=== PATIENT | male | born 1965 | race Caucasian/White ===

== ENCOUNTER → 2021-06-28 13:09 | Outpatient (CLI) | payer BC, SELFPAY ==
--- NOTE | ~2021-06-28 | XR_ITS ---
EXAMINATION: XR chest 2V EXAM DATE: 06/28/2021 13:17 INDICATION: R05 - Cough . TECHNIQUE: Frontal and lateral projections of the chest obtained and reviewed. Comparison is made to prior examination from 09/19/2014. FINDINGS: The lungs are clear. There are no pleural effusions. The cardiomediastinal silhouette is within normal limits. There is no pneumothorax suspected. The bones and soft tissues are unremarkab le. IMPRESSION: Unremarkable chest x-ray exam. Reviewed, dictated and finalized at location A.
== END ==
PROVIDERS: PCP Physician Assistant Medical; Visit Provider Physician Assistant Medical
DX: R05 Cough (principal)
CPT/HCPCS: 71046

== ENCOUNTER 2023-04-03 03:06 | Day surgery (SDC) | payer BC, SELFPAY ==
[2023-03-25 15:52] VITALS: BMI 25.1
--- NOTE | 2023-04-03 11:16 | P.HP_ITS ---
History of Present Illness History of Present Illness Consent: Risks, benefits, and alternatives have been discussed and questions answered. Patient agrees to proceed with procedure. Chief complaint: hemorrhage of anus/rectum,Other specified diseases Narrative: Og Damon is a 58 year old male Referred for colonoscopy. Patient reports he has done well except the last couple months had tender bump that occur. At the anus. This caused occasional bleeding. Initially somewhat uncomfortable. The pain has subsided he has no additional bleeding. Patient does not normally have hemorrhoids. He apparently talked to his primary care service and was sent for a colonoscopy. He was not seen in our office. Patient reports his bowel habits are normal. Family history noncontributory. Colonoscopy in 2018 was unremarkable. Review of Systems Review of Systems: Review of systems noncontributory. [facility] Family History Family History Grandparent Cerebrovascular accident Family history of lung cancer Social History Social History Smoking status: Never smoker Second hand tobacco smoke exposure: No Alcohol intake: current Drinks per week: 2 Substance use type: does not use Living arrangements: with family Spiritual care concerns: No Meds Home Medications and Allergies Home Medications Medication Instructions Recorded Confirmed Type loratadine-pseudoephedrine ER 10 1 tablet PO DAILY 03/25/23 04/03/23 History mg-240 mg tablet,extended [id number] (Claritin-D 24 Hour) fluticasone propionate 50 1 spray intranasal BID #16 grams 03/26/23 04/03/23 Rx mcg/actuation nasal spray,suspension (Flonase Allergy Relief) Allergies Allergy/AdvReac Type Severity Reaction Status Date / Time No Known Allergies Allergy Verified 04/03/23 11:28 Exam Narrative: Physical exam reveals patient to be alert. Vital signs stable. HEENT exam is unremarkable. Patient is anicteric. Lungs are clear to auscultation and percussion. Heart is without murmur or extra sounds. Abdomen bowel sounds present soft nontender with no organomegaly. Digital rectal exam reveals small hemorrhoids. Assessment and Plan Assessment and plan (1) Rectal bleeding: Code(s): K62.5 - Hemorrhage of anus and rectum Status: Acute Assessment and Plan: Rectal bleeding appears to be from a small hemorrhoid. Patient states this is where the bleeding emanates. Plan is for patient to add fiber to his diet. For any discomfort Anusol or preparation H may be beneficial. Colonoscopy arranged by primary care service will be performed today. Further recommendations may be given after endoscopy.
[2023-04-03 11:32] VITALS: BP 106/76; PULSE 69; RESP 16; TEMP 36; O2SAT 100
[2023-04-03] MEDS: LACTATED RINGERS 1,000 ML 150 ML IV CONT (11:40)
--- NOTE | 2023-04-03 11:53 | P.PNAN_ITS ---
Anes - Initial Pre Proc Eval Procedure: Operation Date: 04/03/23 12:30 Proposed Procedures p Colonoscopy - Gary Nelson MD Date/Time: 04/03/23 11:53 Surgeon: Gary Nelson MD Pre Op Diagnosis: hemorrhage of anus/rectum,Other specified diseases Patient Data Age: 58 Gender: M Height: 1.78 m Weight: 77.5 kg Last Vital Signs Temp 96.8 F L 04/03/23 11:32 Pulse 69 04/03/23 11:32 Resp 16 04/03/23 11:32 BP 106/76 04/03/23 11:32 Pulse Ox 100 04/03/23 11:32 O2 Del Method Room Air 04/03/23 11:32 Allergies Allergy/AdvReac Type Severity Reaction Status Date / Time No Known Allergies Allergy Verified 04/03/23 11:28 Home Medications Medication Instructions Recorded Confirmed Type loratadine-pseudoephedrine ER 10 1 tablet PO DAILY 03/25/23 04/03/23 History mg-240 mg tablet,extended [id number] (Claritin-D 24 Hour) fluticasone propionate 50 1 spray intranasal BID #16 grams 03/26/23 04/03/23 Rx mcg/actuation nasal spray,suspension (Flonase Allergy Relief) Patient hx anesthesia problems: none Family hx anesthesia problems: none Results Review: All pre-operative results and documents have been reviewed as part of the pre- operative evaluation. [facility] Family History Family History Grandparent Cerebrovascular accident Family history of lung cancer Social History Social History Smoking status: Never smoker Second hand tobacco smoke exposure: No Alcohol intake: current Drinks per week: 2 Substance use type: does not use Living arrangements: with family Spiritual care concerns: No Anes - Eval Final PreProcedure Day of Procedure 04/03/23 11:53 Patient weight: normal Heart: regular rate and rhythm Lungs: clear to auscultation Neurological: alert and oriented Last oral intake: >/= 8 hours ASA classification: II Emergent: no Anesthetic plan: proceed Anesthesia type and monitoring: general GIVS and standard monitoring Results Review: All pre-operative results and documents have been reviewed as part of the pre- operative evaluation. Informed Consent: The patient's anesthetic plan and its attendant risks and benefits were discussed with the patient/family/POA. Questions were solicited and answers provided to the satisfaction of the patient/family/POA.
[2023-04-03 12:14] VITALS: BP 98/69; PULSE 80; RESP 18; O2SAT 98
[2023-04-03 12:24] VITALS: BP 100/71; PULSE 68; RESP 18; O2SAT 99
[2023-04-03 12:34] VITALS: BP 109/77; PULSE 66; RESP 18; O2SAT 99
== END 2023-04-03 12:53 | disposition home or self-care (01) ==
PROVIDERS: PCP Family Medicine; Visit Provider Internal Medicine Gastroenterology
PROC: 0DJD8ZZ Inspection of Lower Intestinal Tract, Via Natural or Artificial Opening Endoscopic (ICD-10-PCS; CPT 45378; principal; 2023-04-03 12:30)
DX: K64.8 Other hemorrhoids (principal)
CPT/HCPCS: 45378; J2704; J7120

== ENCOUNTER 2023-10-07 15:44 | Outpatient (CLI) | payer BC, SELFPAY ==
--- NOTE | ~2023-10-07 | XR_ITS ---
EXAMINATION: XR chest 2V 10/07/2023 16:01 INDICATION: PROCEDURE: COMPARISON: FINDINGS: The lungs are clear. The cardiomediastinal silhouette is within normal limits. There are no pleural effusions. There is no pneumothorax suspected. IMPRESSION: 1: NO ACUTE CARDIOPULMONARY DISEASE. Reviewed, dictated and finalized at location B. [employer]SEM[employer]Y
== END 2023-10-07 15:45 ==
PROVIDERS: PCP Family Medicine; Visit Provider Emergency Medicine
DX: R05.3 Chronic cough (principal)
CPT/HCPCS: 71046

== ENCOUNTER 2023-10-24 14:04 | Emergency (ER) | payer BC, SELFPAY ==
--- NOTE | ~2023-10-24 | XR_ITS ---
XR knee LT min 4V 10/24/2023 14:43 Indication: Laceration with saw. Procedure: 4 views of the left knee Comparison: No prior studies for comparison. Findings: There is soft tissue gas in the suprapatellar location. No acute fracture. Small joint effu hany. There are foreign bodies in the infrapatellar soft tissues. Impression: 1: No acute fracture. 2: Small punctate foreign bodies of the infrapatellar soft tissues anteriorly. 3: Soft tissue gas in the suprapatellar location, likely related to laceration. Reviewed, dictated and finalized at location A. NG ROOM SUPERVISOR Impression: 1: No acute fracture. 2: Small punctate foreign bodies of the infrapatellar soft tissues anteriorly. 3: Soft tissue gas in the suprapatellar location, likely related to laceration .
--- NOTE | ~2023-10-24 | XR_ITS ---
[id number] 10/24/2023 18:37 Indication: Foreign body removal Procedure: Lateral view of the knee Comparison: 10/24/2023 Findings: Interval removal of foreign bodies in the infrapatellar soft tissues anterior to the knee. Moderate joint effusion with soft tissue gas in the suprapatellar location, unchanged. No fracture. Impression: 1: Interval removal of punctate foreign bodies in the infrapatellar soft tissues. Reviewed, dictated and finalized at location A. ESS ATTENDANT Impression: 1: Interval removal of punctate foreign bodies in the infrapatellar soft tissue s.
[2023-10-24 14:05] VITALS: BP 120/69; PULSE 80; RESP 16; TEMP 36.4; O2SAT 97
--- NOTE | 2023-10-24 18:34 | ED.WOUNDLAC ---
HPI - Wound/Laceration General Chief Complaint: Wound/Laceration Stated Complaint: knee lac Time Seen by Provider: 10/24/23 18:09 Source: patient Mode of arrival: wheelchair Limitations: no limitations History of Present Illness HPI narrative: This is a 58 year old male that presents to the ER for laceration to the left leg sustained just prior to arrival. Reports he was using a reciprocating saw and accidentally cut his left thigh. He is up-to-date on tetanus vaccination. Reports bleeding and pain in the area. Denies decreased range of motion or numbness. Related Data Allergies Allergy/AdvReac Type Severity Reaction Status Date / Time No Known Allergies Allergy Verified 10/24/23 14:09 Review of Systems Review of Systems: CONSTITUTIONAL: Denies fever SKIN: Reports laceration MUSCULOSKELETAL: Denies joint pain NEUROLOGIC: Denies numbness All systems reviewed & are unremarkable except as noted in HPI and below PMFSH Past Medical History Medical History (Updated 10/24/23 @ 20:06 by Modesta Ochoa PA-C) No active medical problems Family History Family History Grandparent Cerebrovascular accident Family history of lung cancer Social History Social History (Updated 10/07/23 @ 15:11 by Izabela Gibson) Social History: Caffeine- coffee Smoking status: Never smoker Second hand tobacco smoke exposure: No Alcohol intake: current Drinks per week: 2 Substance use: never Substance use type: does not use Lack of Transportation: No Lack of Food: Never True Current Housing: I Have Housing Concerned About Future Housing: No Difficulty Paying Gas/Electric Bills: No Difficulty Paying for Meds: No Currently Unemployed: No Education: Master's Degree or Higher Difficulty w/ Childcare or Family Care: No Living arrangements: with family Spiritual care concerns: No Exam Narrative: GENERAL: Well-appearing, well-nourished, and in no acute distress. HEAD: Normocephalic, atraumatic. EYES: EOMI. EXTREMITIES: Normal range of motion. No edema. Left distal thigh medially with 2cm linear laceration into subcutaneous tissue. Normal DP pulse. Normal sensation SKIN: Warm, dry, no rash. NEURO: No focal deficits. Alert and oriented x3. PSYCH: Normal mood and affect Course Vital Signs Vital signs: Vital Signs Temperature 97.5 F L 10/24/23 14:05 Pulse Rate 80 10/24/23 14:05 Respiratory Rate 16 10/24/23 14:05 Blood Pressure 120/69 10/24/23 14:05 Pulse Oximetry 97 10/24/23 14:05 Oxygen Delivery Room Air 10/24/23 14:05 Temperature 97.5 F L 10/24/23 14:05 Pulse Rate 80 10/24/23 14:05 Respiratory Rate 16 10/24/23 14:05 Blood Pressure 120/69 10/24/23 14:05 Pulse Oximetry 97 10/24/23 14:05 Oxygen Delivery Room Air 10/24/23 14:05 Procedures Laceration Laceration 1: Date: 10/24/23 Time: 20:03 Site: lower extremity Side (If applicable): left Size (cm): 2 Description: linear Depth: simple, single layer Local Anesthetic: lidocaine 1% and with epi Amount of anesthesia used (mL): 3 Pre-repair: irrigated extensively ====== Skin Level ====== Skin layer closed with: nylon Size (cm): 4-0 Number of sutures: 2 Technique: simple, interrupted ====== Subcutaneous Layer ====== ====== Muscle Layer ====== ====== Tendon Layer ====== MDM - Wound/Laceration MDM Narrative Medical decision making narrative: Patient presents to the emergency department for a laceration to his left thigh sustained just prior to arrival. Patient is neurovascularly intact. Left knee x-ray shows small punctate foreign bodies in the infrapatellar soft tissues. Also shows soft tissue gas in the suprapatellar location due to the laceration. No acute bony abnormalities. His skin was cleansed and wound irrigated. The
--- NOTE | 2023-10-24 19:32 | PC.NURSE ---
Pt states he received Tetanus vaccine in 2019 after being treated for laceration to R forearm. KRISTI Byers notified.
[2023-10-24] MEDS: CEPHALEXIN 500 MG CAPSULE PO (20:24)
== END 2023-10-24 20:27 | disposition home or self-care (01) ==
PROVIDERS: Emergency Provider Physician Assistant; PCP Family Medicine
DX: S71.112A Laceration without foreign body, left thigh, initial encounter (principal); W27.0XXA Contact with workbench tool, initial encounter
CPT/HCPCS: 12001; 73560; 73564; 99283; A9270

== ENCOUNTER 2024-09-20 11:40 | Outpatient (CLI) | payer OTHER, SELFPAY ==
[2024-09-20 13:57] LABS: Prostate Specific Antigen 1.8 ng/mL (< OR = 4.0)
== END 2024-09-20 11:41 | disposition home or self-care (01) ==
LOC: ANHGOSHLAB 11:42
PROVIDERS: PCP Family Medicine; Visit Provider Family Medicine
DX: Z12.5 Encounter for screening for malignant neoplasm of prostate (principal)
CPT/HCPCS: 36415; 84153; G0103